=== PATIENT | male | born 1935 | race African-American/Black ===

== ENCOUNTER 2020-04-01 13:26 | Emergency (ER) | payer OTHER ==
[~2020-04-01] VITALS: Ht 172.7 cm; Wt 79.0 kg
[2020-04-01 13:31] VITALS: BP 188/80
[2020-04-01] MEDS ORDERED: ATOR20TA PO (13:31)
[2020-04-01] MEDS ORDERED: AMLO10TA80 PO (13:31)
[2020-04-01] MEDS ORDERED: SODIUM CHLORIDE 0.9% 1,000 ML IV ONE (13:51)
[2020-04-01] MEDS ORDERED: ONDANSETRON HCL 4MG/2ML INJ IV STA (13:51)
[2020-04-01] MEDS ORDERED: MECLIZINE 25MG TABLET PO ONE (14:00)
[2020-04-01 15:50] LABS: CLARITY URINE CLOUDY (CLEAR); COLOR URINE DARK YELLOW (YELLOW); KETONES URINE TRACE (NEGATIVE); LEUKOCYTE ESTERASE URINE TRACE (NEGATIVE); NITRITE URINE NEGATIVE (NEGATIVE); OCCULT BLOOD URINE NEGATIVE (NEGATIVE); PH URINE 7.5 (4.5-8.0); PROTEIN URINE 1+ (NEGATIVE)
[2020-04-01 15:51] LABS: BASOPHILS % 0.9 % (0.0-2.0); EOSINOPHILS % 3.5 % (0.0-5.0); HEMATOCRIT. 38.2 % (42.0-52.0); HEMOGLOBIN. 13.4 g/dL (14.0-18.0); LYMPHOCYTES % 21.2 % (20.0-50.0); MEAN CORPUSCULAR HEMOGLOBIN 33.4 pg (28.0-32.0); MEAN CORPUSCULAR VOLUME 95.5 fL (80.0-94.0); MONOCYTES % 8.9 % (2.0-8.0); NEUTROPHILS % 65.5 % (40.0-76.0); PLATELET 216 x1000/uL (130-400); RED CELL DISTRIBUTION WIDTH 13.3 % (11.6-14.6)
[2020-04-01 15:56] LABS: PROTHROMBIN TIME 10.4 sec (9.6-11.0)
[2020-04-01 15:57] LABS: CHLORIDE 105 mEq/L (98-107)
== END 2020-04-01 16:45 | disposition home or self-care (01) ==
LOC: ER 13:26
DX: H81.399 Other peripheral vertigo, unspecified ear (principal); I10 Essential (primary) hypertension
CPT/HCPCS: 36415; 71045; 80053; 81003; 85025; 85610; 93005; 96361; 96374; 99285; J2405; J7030; J8597

== ENCOUNTER 2020-07-13 13:47 | Emergency (ER) | payer OTHER ==
[~2020-07-13] VITALS: Ht 172.7 cm; Wt 73.0 kg
[~2020-07-13 13:47] MED LIST: AMLO10TA80 PO; ATOR20TA PO
[2020-07-13] MEDS ORDERED: LIPITOR (14:01)
[2020-07-13 15:02] LABS: CHLORIDE 104 mEq/L (98-107)
[2020-07-13 15:03] LABS: BASOPHILS % 1.2 % (0.0-2.0); EOSINOPHILS % 3.5 % (0.0-5.0); HEMATOCRIT. 46.3 % (42.0-52.0); HEMOGLOBIN. 15.6 g/dL (14.0-18.0); LYMPHOCYTES % 46.1 % (20.0-50.0); MEAN CORPUSCULAR HEMOGLOBIN 32.3 pg (28.0-32.0); MEAN CORPUSCULAR VOLUME 95.9 fL (80.0-94.0); MEAN PLATELET VOLUME 7.8 fl (7.4-10.4); MONOCYTES % 7.2 % (2.0-8.0); PLATELET 200 x1000/uL (130-400); RED BLOOD CELL COUNT 4.83 mill/uL (4.7-6.1); RED CELL DISTRIBUTION WIDTH 12.9 % (11.6-14.6)
[2020-07-13 15:07] LABS: INR 1.1; PROTHROMBIN TIME 11.9 sec (9.6-11.0)
[2020-07-13] MEDS ORDERED: LEVETIRACETAM 500MG PREMIX 100 ML IV ONE ×2 (16:30)
[2020-07-13] MEDS ORDERED: LEVETIRACETAM 1000MG/100ML 100 ML IV NR (16:45)
[2020-07-13 20:10] VITALS: BP 132/93
== END 2020-07-13 20:24 | disposition short-term general hospital (02) ==
LOC: ER 13:47 → CANBEDREQ 20:58
DX: S06.5X9A Traumatic subdural hemorrhage with loss of consciousness of unspecified duration, initial encounter (principal); I10 Essential (primary) hypertension; E78.00 Pure hypercholesterolemia, unspecified; W07.XXXA Fall from chair, initial encounter; Y93.89 Activity, other specified; Y92.9 Unspecified place or not applicable
CPT/HCPCS: 36415; 70450; 71045; 80053; 84484; 85025; 85610; 96374; 99285; J1953